=== PATIENT | female | born 1990 | race Two or more races ===

== ENCOUNTER 2019-01-28 08:26 | Emergency (ER) | payer MEDICAID ==
[~2019-01-28] VITALS: Ht 154.9 cm; Wt 104.3 kg
[2019-01-28 08:32] VITALS: BP 135/86
[2019-01-28] MEDS ORDERED: LIDOCAINE 1%-EPI 1:100,000 20 ML VIAL ONE (08:50)
[2019-01-28] MEDS ORDERED: LIDOCAINE 1% INJ 50 ML MDV IJ ONE ×2 (08:51→09:00)
[2019-01-28] MEDS ORDERED: BACITRACIN ZINC OINT PACKET 1 EA PACKET TP ONE (11:30)
== END 2019-01-28 11:10 | disposition home or self-care (01) ==
LOC: ER 08:26
DX: S01.511A Laceration without foreign body of lip, initial encounter (principal); W54.0XXA Bitten by dog, initial encounter; Y93.K1 Activity, walking an animal; Y92.89 Other specified places as the place of occurrence of the external cause; Y99.8 Other external cause status
CPT/HCPCS: 12011; 99283; A6403; J3490